=== PATIENT | male | born 1955 | race Caucasian/White ===

== ENCOUNTER 2017-10-06 03:54 | Inpatient (IN) | payer OTHER ==
[~2017-10-06] VITALS: Ht 185.4 cm; Wt 68.8 kg
--- NOTE | ~2017-10-06 | CATHLAB ---
[facility] [address] [place] [address] INVASIVE PROCEDURE REPORT Name: VANE HURD Room #: 248-P ADM IN M.R.#: [id number] Admission: 10/06/17 Attend Phys: Carlos Womack Discharge: Date of : 53 Date of Service: 10/06/17 0810 Report #: [id number] THIS REPORT FOR: //name// APPROVED REPORT Patient Details Patient Status: In-Patient Room #: The patient is a 61 year-old male Event Personnel Moose Hunter Pot Liner, Corinne Perez, Jens Koenig RT(R)(CV) Jacky Johnston Ceola RN RN, Valeriy Shay fitness and wellness coordinator Performed Art Access - R femoral artery* Left Heart Cath w/or w/o Coronaries [id number] [facility] SR[facility] Revasc AMI Total/Sub Single RCA [id number] AMIREVSING Procedure Narrative The patient was brought emergently to the Cardiac Catheterization Laboratory and was prepped and draped in a sterile manner. The Right Groin^ was infiltrated with 1% Lidocaine subcutaneous anesthesia. A PINNACLE 6FR Sheath #[id number] sheath was inserted into the RFA^. Coronary angiography was performed using coronary diagnostic catheters. The right coronary system was accessed and visualized with a JR 4 catheter. The left coronary system was accessed and visualized with a JL 4 catheter. The left ventricle was accessed and visualized with a Pigtail catheter. Left ventricular/Aortic Valve gradient assessed via catheter pullback. Left ventriculogram was performed in GARCIA projection. The patient tolerated the procedure well and there were no complications associated with the procedure. There was no hematoma. Fluoro Time: 11.44 minutes Dose: DAP 00548.10 cGycm2 1503 mGy Contrast Type and Amount: Visipaque 270 ml Coronary Angiography The patient's coronary anatomy is right dominant. Diagnostic Cath Left Main Normal LAD Mild proximal plaquing, 30-40% stenosis Diagonal 1 Large, single diagonal branch with mild proximal [facility] [address] [place] [address] INVASIVE PROCEDURE REPORT Name: VANE HURD Room #: 248-P [facility] IN ..#: [id number] Admission: 10/06/17 Attend Phys: Carlos Womack Discharge: Date of : 53 Date of Service: 10/06/17 0810 Report #: [id number] plaquing Circumflex Moderate in size, non-dominant OM1 small, free of angiographic disease OM2 small to moderte in size, mild proximal plaquing Right Coronary Large, dominant vessel. Proximal stenosis 75%, long tubular mid RCA stenosis of 75-80%, long 99% distal RCA stenosis prior to PDA Left Ventriculography The left ventricle is normal in size with hypokinetic inferior wall contractility. The left ventricular ejection fraction is estimated to be 45%. Left ventricular wall motion abnormalities are present. There is no mitral insufficiency. Hemodynamics The aortic pressure is 86/48 mmHg with a mean of 62 mmHg. The left ventricular pressure is 88/8 mmHg with a mean of mmHg. The left ventricular end diastolic pressure is 24 mmHg. PCI Technique Severe sequential RCA disease involving proximal, mid, and distal segments. Each stenosis pre-dilated with the Euphora balloon. Hypotension requiring dopamine during interventsion. Recurrent episodes of ventricular fibrillation, immediately defibrillated on multiple occasions. IV amiodarone given, bolus then infusion. Between episosed of VF, the RCA with stented, first in the mid section with a 3.0 x 34mm Resolute stent. Then in apposition, more proximally a 3.0 x 15mm Resolute stent. Attention was turned to a long distal RCA stenosis, stented with a 3.0 x 34mm Resolute stent. All three stents were post dilated with a 3.25mm NC Trek balloon inflated to high pressures. Recurrent VF terminated with congregational in MAUREEN III flow to the RCA PCI Technique Lesion Anticoagulation was achieved with Heparin, Integrilin. Patient was preloaded with Brillinta. Percutaneous coronary intervention was performed on the Distal right coronary artery. The lesion stenosis prior to intervention was 99% with MAUREEN 1 flow. A LAUNCHER 6FR JR 4 SH #[id number] Guide Catheter was used to engage the RCA ostium. A Luge Wire .014 x 182CM #[id number] Interventional Guidewire was used to cross the lesion. BALLOON DILATION A Balloon catheter Euphora RX 2.5 x 15 #[id number] was inserted and inflated up to 14.00atm for 28seconds. Repeat angiography revealed [facility] [address] [place] [address] INVASIVE PROCEDURE REPORT Name: VANE HURD Room #: 248-P [facility] IN M.R.#: [id number] Admission: 10/06/17 Attend Phys: Carlos Womack Discharge: Date of : 53 Date of Service: 10/06/17 0810 Report #: [id number] the following post-dilatation results: moderate residual stenosis. Additional Inflation: 8.00atm for 23seconds. Additional Inflation: 8.00atm for 17seconds. STENT DEPLOYMENT A drug-eluting stent RESOLUTE RX 3.0 X 34 #[id number] was inserted and inflated up to 13.00atm for 39seconds. POST STENT DEPLOYMENT BALLOON DILATION A Balloon catheter TREK NC RX 3.25 X 12 #[id number] was inserted and inflated up to 16.00atm for 23seconds. Repeat angiography revealed the following post-dilatation results: 0% residual. Additional Inflation: 16.00atm for 29seconds. Additional Inflation: 16.00atm for 31seconds. Final angiography reveals 0 % stenosis with MAUREEN 3 flow. PCI Technique Lesion 2 Percutaneous Coronary Intervention was performed on the mid right coronary artery. The lesion stenosis prior to intervention was 75% with MAUREEN 1 flow. A LAUNCHER 6FR JR 4 SH #[id number] Guide Catheter was used to engage the ostium. A Luge Wire .014 x 182CM #[id number] Interventional Guidewire was used to cross the lesion. Balloon Dilation A Balloon catheter Euphora RX 2.5 x 15 #[id number] was inserted and inflated up to 10atm for 30seconds. Repeat angiography revealed the following post-dilatation results: moderate residual stenosis. Stent Deployment A drug-eluting stent RESOLUTE RX 3.0 X 34 #[id number] was inserted and inflated up to 13.00atm for 25seconds. Repeat angiography revealed the following post-stent deployment results: 0% residual stenosis. Post Stent Deployment Balloon Dilation A Balloon catheter TREK NC RX 3.25 X 12 #[id number] was inserted and inflated up to 20.00atm for 20seconds. Additional Inflation: 20.00atm for 33seconds. Additional Inflation: 20.00atm for 27seconds. Final angiography reveals 0 % stenosis with MAUREEN 3 flow. PCI Technique Lesion Anticoagulation was achieved with Heparin, Integrilin. Percutaneous coronary intervention was performed on the proximal right coronary artery. [facility] [address] [place] [address] INVASIVE PROCEDURE REPORT Name: VANE HURD Room #: 248-P [facility] IN ..#: [id number] Admission: 10/06/17 Attend Phys: Carlos Womack Discharge: Date of : 53 Date of Service: 10/06/17 0810 Report #: [id number] BALLOON DILATION A Balloon catheter Euphora RX 2.5 x 15 #[id number] was inserted and inflated up to 10atm for 30seconds. Repeat angiography revealed the following post-dilatation results: moderately severe stenosis. STENT DEPLOYMENT A bare metaldrug-eluting stent RESOLUTE RX 3.0 X 15 #[id number] was inserted and inflated up to 14atm for 32seconds. Repeat angiography revealed the following post-stent deployment results: 0% residual stenosis. POST STENT DEPLOYMENT BALLOON DILATION A Balloon catheter TREK NC RX 3.25 X 12 #[id number] was inserted and inflated up to 22atm for 30seconds. Repeat angiography revealed the following post-stent deployment results: 0% residual stenosis. Final angiography reveals 0 % stenosis with MAUREEN 3 flow. PCI Technique Lesion 3 Percutaneous Coronary Intervention was performed on the proximal right coronary artery. The lesion stenosis prior to intervention was 75% with MAUREEN 1 flow. A LAUNCHER 6FR JR 4 SH #[id number] Guide Catheter was used to engage the right ostium. Balloon Dilation A Balloon catheter Euphora RX 2.5 x 15 #[id number] was inserted and inflated up to 10atm for 30seconds. Repeat angiography revealed the following post-dilatation results: moderate residual stenosis. Stent Deployment A drug-eluting stent RESOLUTE RX 3.0 X 15 #[id number] was inserted and inflated up to 10atm for 30seconds. Repeat angiography revealed the following post-stent deployment results: 0% residual. Post Stent Deployment Balloon Dilation A Balloon catheter TREK NC RX 3.25 X 12 #[id number] was inserted and inflated up to 20atm for 30seconds. Final angiography reveals 0 % stenosis with MAUREEN 3 flow. Conclusion 1. Moderate left ventricular dysfunction with inferior wall hypokinesis. EF 45% 2. Normal left main [facility] [address] [place] [address] INVASIVE PROCEDURE REPORT Name: VANE HURD Room #: 248-P [facility]..#: [id number] Admission: 10/06/17 Attend Phys: Carlos Womack Discharge: Date of : 53 Date of Service: 10/06/17 0810 Report #: [id number] 3. Mild-moderate LAD and Circumflex plaquing 4. RCA occlusion with severe sequential stenoses involving the proximal, mid, and distal RCA: Proximal stenosis treated with 3.0 x 15mm Resolute stent, mid RCA with 3.0 x 34mm Resolute stent, and distal RCA with 3.0 x 34mm Resolute stent Recommendations Cardiac Rehabilitation Referral Aggressive Medical Therapy Medications Administered ARB (any) Aspirin (any) Beta Sarahi (any) Statin (any) Ticagrelor Cardiac Rehabilitation Referral <ELECTRONICALLY SIGNED> By: Moose Hunter MD, [facility] 10/06/17809 9 9 Moose Hunter MD, [facility] /INF
--- NOTE | ~2017-10-06 | EKG ---
[address] [place] [address] ELECTROCARDIOGRAM REPORT Name: VANE HURD Room #: 248-P ADM IN M.R.#: [id number] Admission: 10/06/17 Attend Phys: Carlos Bhatt Discharge: Date of : 53 Report #: [id number] THIS REPORT FOR: //name// [facility] Test Date: 2017-10-07 Test Time: 07:10:26 Pat Name: VANE HURD Department: Room: 248 P Gender: M Conference Interpreter: MARIAN : 1955 Requested By: Moose Hunter Order Number: [id number] MD: Moose Hunter Measurements Intervals [place] Rate: 69 P: 37 RI: 201 QRS: 49 QRSD: 107 T: -41 QT: 488 QTc: 523 Interpretive Statements Sinus rhythm Probable anterolateral infarct, age indeterm Prolonged QT interval T-wave abnormality, consider inferior and lateral ischemia Compared to ECG 10/06/2017 07:54:41 Prolonged QT interval now present Anterior lateral Q waves are more prominent Electronically Signed On 10-07-2017 8:15:06 BENCH HAND by Moose Hunter [email or web address] <ELECTRONICALLY SIGNED> By: Moose Hunter MD, [facility] 10/07/17 0815 0710 9 Moose Hunter MD, [facility] /EPI
--- NOTE | ~2017-10-06 | EKG ---
[address] [address] ELECTROCARDIOGRAM REPORT Name: VANE HURD Room #: 248-P ADM IN M.R.#: [id number] Admission: 10/06/17 Attend Phys: Carlos Bhatt Discharge: Date of : 53 Report #: [id number] THIS REPORT FOR: //name// [facility] Test Date: 2017-10-10 Test Time: 06:03:54 Pat Name: VANE HURD Department: Room: 248 P Gender: M Presales Senior Specialist: MARIAN : 1955 Requested By: Cathryn Robles Order Number: [id number] MD: Ronan Bean Measurements Intervals [place] Rate: 70 P: 36 VT: 160 QRS: 32 QRSD: 124 T: -61 QT: 482 QTc: 521 Interpretive Statements Sinus rhythm Nonspecific intraventricular conduction delay Borderline T abnormalities, diffuse leads Compared to ECG 10/09/2017 11:14:40 Intraventricular conduction delay now present Atrial fibrillation no longer present Right ventricular hypertrophy no longer present T-wave abnormality still present Electronically Signed On 10-10-2017 15:02:15 INSURANCE EXAMINING CLERK by Ronan Bean [email or web address] <ELECTRONICALLY SIGNED> By: Ronan Bean MD 10/10/17 1502 0603 0603 Ronan Bean MD /EPI
--- NOTE | ~2017-10-06 | HC ---
[facility] [place] [address] CONSULTATION Name: DARRYNWENDIEVANE Ovi Room #: 248-P [facility] IN M.R.#: [id number] Admission: 10/06/17 Attend Phys: Carlos Bhatt Discharge: Date of : 53 Report #: [id number] THIS REPORT FOR: //name// CC: FAM unknown Carlos Bhatt REASON FOR CONSULTATION: Out-of-the hospital cardiac arrest. HISTORY OF PRESENT ILLNESS: The patient is a 61-year-old gentleman with limited past medical history. He woke up about 2:45 a.m. this morning, telling his that he did not feel well. He went into the bathroom with nausea and vomiting. She came to bring him a cold compress, left the bathroom and heard him collapse. She immediately called 911 and was instructed on bystander CPR. Paramedics arrived and found him to be in ventricular fibrillation, for which he received 5 defibrillator shocks. He was given 5 rounds of epinephrine and total resuscitation time was around 30-35 minutes. He is currently intubated and sedated. No prior cardiac history. No heart failure symptoms. His reports no history of near syncope or syncope. ALLERGIES: No known drug allergies. MEDICATIONS: No medicines on a regular basis. PAST MEDICAL HISTORY: No significant hospitalizations or illnesses. SOCIAL HISTORY: He is a nonsmoker, nondrinker. FAMILY HISTORY: Unremarkable for premature coronary disease. REVIEW OF SYSTEMS: Not obtainable. PHYSICAL EXAMINATION: GENERAL: Reveals a comatose gentleman who is intubated and ventilated. VITAL SIGNS: Blood pressure is 125/100, heart rate of 77 and regular, respirations are assisted. HEENT: There are neither xanthelasma, subcutaneous xanthomata, oral mucosal or digital cyanosis or kyphoscoliosis present. CHEST: Reveals mid-to-end expiratory wheezes. CARDIAC: Regular rate and rhythm with normal S1, S2. Heart sounds are distant. ABDOMEN: Soft and nontender. EXTREMITIES: Without cyanosis, clubbing or edema. Radial pulses are 2+. NEUROLOGIC: Neurologically he is comatose. LABORATORY DATA: Sodium 142, potassium 3.7, creatinine 1.3. White count 9.6; hemoglobin 11.8; hematocrit 34; platelet count 31,000. EKG, sinus rhythm with baseline artifact, there appear to be inferior repolarization abnormality consistent with injury, right bundle-branch block. [facility] [address] [place] [address] CONSULTATION Name: VANE HURD Room #: 248-P [facility] IN M.R.#: [id number] Admission: 10/06/17 Attend Phys: Carlos Bhatt Discharge: Date of : 53 Report #: [id number] IMPRESSION: 1. Dkd-pe-yeaxzmtk cardiac arrest with prolonged resuscitation. 2. Inferior infarct precipitating #1 above. 3. Ventricular fibrillation with defibrillation x 5. 4. Respiratory failure; probable aspiration 5. Hypoxic encephalopathy RECOMMENDATIONS: 1. Urgent coronary angiography. 2. Hypothermia protocol. 3. Neurologic and Pulmonary consultations. I have discussed all of these issues with the patient's family. I have outlined the angiographic procedure including its associated risks. After a thorough discussion of the procedure, its risks and alternatives, his is agreeable to proceeding. <ELECTRONICALLY SIGNED> By: Moose Hunter MD, FACC 10/09/17 0813 0527 1155 Moose Hunter MD, FACC /nt
--- NOTE | ~2017-10-06 | HC ---
[facility] [place] [address] [place] [address] CONSULTATION Name: VANE HURD Room #: 248-P [facility] IN M.R.#: [id number] Admission: 10/06/17 Attend Phys: Carlos Bhatt Discharge: Date of : 53 Report #: [id number] THIS REPORT FOR: //name// CC: FAM unknown Carlos Bhatt REASON FOR CONSULTATION: I was asked to evaluate concerning fever post out of hospital cardiac arrest. HISTORY OF PRESENT ILLNESS: The patient is a 61-year-old previously healthy individual who developed anterior chest pain on 10/06/2017. He passed out in the bathroom. His was in attendance and started CPR. He was found to be in VFib. He was transported to the emergency room and he was taken straight to the labor relations director where he was found to have a posterior infarct with right coronary artery occlusion that was stented. He was placed on ice protocol. Following rewarming, he has had fever between 100 and 101.4 degrees. He remains intubated. He is beginning to awaken. He did aspirate. Moderate amount of tracheal secretions, but culture so far has been negative blood, urine and sputum. He was placed on Zosyn. Despite this, he continues to have low-grade fever. REVIEW OF SYSTEMS: No rash or decubiti noted. No ongoing nausea, vomiting, or diarrhea. He is orally intubated. NG tube in place. ALLERGIES: None. PAST MEDICAL HISTORY: Unremarkable other than colon polyposis. FAMILY HISTORY: Noncontributory. SOCIAL HISTORY: Nonsmoker, no significant alcohol intake. He remains very active, exercises regularly. MEDICATIONS: As noted on his MAR, now including vancomycin and Zosyn. PHYSICAL EXAMINATION: VITAL SIGNS: Temperature 100.1, hemodynamically stable. GENERAL: He does arouse and follow simple commands. Orally intubated. HEENT: Unremarkable. NECK: Supple. LUNGS: Clear anteriorly with few crackles heard in the left posterior base. HEART: Regular. ABDOMEN: Soft, nontender, no hepatosplenomegaly or mass. Groin site was unremarkable. EXTREMITIES: Unremarkable. LABORATORY STUDIES: Chest x-ray, bilateral infiltrates and atelectasis. X-ray [facility] [address] [place] [address] CONSULTATION Name: VANE HURD Room #: 248-P [facility] IN ..#: [id number] Admission: 10/06/17 Attend Phys: Carlos Bhatt Discharge: Date of : 53 Report #: [id number] today appears improved from yesterday. Hemoglobin 9.5, platelet count 73,000, white count 4.9 with 76% segs, and 15% lymphs. AST 107, ALT 148, and bilirubin 1.7. Sodium 144, potassium 3.9, bicarbonate 24, and creatinine 0.9. Urinalysis unremarkable. Repeat blood and sputum cultures are pending. IMPRESSION: A 61-year-old with out of hospital cardiac arrest, now day #4 with ongoing low grade fever. I am suspecting pulmonary source most likely. He does have mild hepatitis, which I suspect is related to ischemia. He does have thrombocytopenia, again which appears most likely disseminated intravascular coagulation relating to his previous stress or drug related. Overall, he seems to be improving. We would recommend continuing current antibiotic program with vancomycin and will switch the Zosyn to cephalosporins fever. <ELECTRONICALLY SIGNED> By: Jayden Alvarado MD 10/11/17 1129 1019 1802 Jayden Alvarado MD /nt
--- NOTE | ~2017-10-06 | 2DMMODE ---
[facility] [address] [place] [address] 2 D/M-MODE ECHOCARDIOGRAM Name: VANE HURD Room #: 248-P ADM IN M.R.#: [id number] Admission: 10/06/17 Attend Phys: Carlos Womack Discharge: Date of : 53 Date of Service: 10/07/17 1305 Report #: [id number] THIS REPORT FOR: //name// APPROVED REPORT Study performed: 10/07/2017 09:03:44 EXAM: Comprehensive 2D, Doppler, and color-flow Echocardiogram Patient Location: ICU Room #: 248 Status: routine BSA: 1.97 BP: 160/81 mmHg Other Information Study Quality: Adequate Indications Elevated Troponin SD 2D Dimensions RVDd: 32.68 mm LVEF(%): 58.31 (>50%) IVSd: 14.74 (7-11mm) LVOT Diam: 18.56 (18-24mm) LVDd: 41.37 mm PWd: 13.45 (7-11mm) Ascending Ao: 31.45 (22-36mm) LVDs: 28.78 (25-40mm) Aortic Root: 36.01 mm IVC: 14.00 mm Hernandez's LVEF: 58.31 % Volumes Left Atrial Volume (Systole) Single Plane 4CH: 23.92 mL Single Plane 2CH: 66.26 mL LA ESV Index: 22.00 mL/m2 Aortic Valve AoV Peak Russell.: 1.45 m/s AO Peak Gr.: 8.42 mmHg LVOT Max P.05 mmHg LVOT Max V: 1.12 m/s KHADIJAH Vmax: 2.09 cm2 Mitral Valve E/A Ratio: 1.2 MV Decel. Time: 254.07 ms [facility] [address] [place] [address] 2 D/M-MODE ECHOCARDIOGRAM Name: VANE HURD Room #: 248-P [facility].#: [id number] Admission: 10/06/17 Attend Phys: Carlos Womack Discharge: Date of : 53 Date of Service: 10/07/17 1305 Report #: [id number] MV E Max Russell.: 0.67 m/s MV A Russell.: 0.57 m/s MV PHT: 73.68 ms IVRT: 145.33 ms Pulmonary Valve PV Peak Russell.: 1.12 m/s PV Peak Gr.: 4.98 mmHg Pulmonary Vein P Vein S: 0.42 m/s P Vein A: 0.22 m/s P Vein D: 0.32 m/s P Vein A Dur.: 86.5 msec P Vein S/D Ratio: 1.31 Tricuspid Valve RAP Estimate: 5.00 mmHg Left Ventricle The left ventricle is normal size. Regional wall motion is not well visualized but grossly normal. Mild concentric left ventricular hypertrophy. The left ventricular systolic function is normal. The left ventricular ejection fraction is within the normal range. LVEF is 55%. The left ventricular diastolic function is normal. Right Ventricle The right ventricle is normal size. The right ventricular systolic function is normal. Atria The left atrium size is normal. Right atrium is at the upper limits of normal. Aortic Valve The aortic valve is mildly sclerotic Trace to mild aortic regurgitation. There is no aortic valvular stenosis. Mitral Valve The mitral valve is normal in structure. Trace mitral regurgitation. No evidence of mitral valve stenosis. Tricuspid Valve The tricuspid valve is normal in structure. There is no tricuspid valve regurgitation noted. Unable to assess PA pressure. Pulmonic Valve Pulmonic valve is not well visualized. There is no pulmonic valvular regurgitation noted. [address] [address] 2 D/M-MODE ECHOCARDIOGRAM Name: VANE HURD Room #: 248-P [facility] IN [facility]#: [id number] Admission: 10/06/17 Attend Phys: Carlos Womack Discharge: Date of : 53 Date of Service: 10/07/17 1305 Report #: [id number] Great Vessels The aortic root is normal in size. IVC is normal in size and collapses >50% with inspiration. Pericardium There is no pericardial effusion. <Conclusion> The left ventricular systolic function is normal. Regional wall motion is not well visualized but grossly normal. LVEF is 55%. The aortic valve is mildly sclerotic. Trace to mild aortic regurgitation, no stenosis. The mitral valve is normal in structure. Trace mitral regurgitation. Pulmonary artery pressure could not be reliably ascertained There is no pericardial effusion. <ELECTRONICALLY SIGNED> By: Moose Hunter MD, FACC 10/07/17 1305 1305 1305 Moose Hunter MD, FACC /INF
--- NOTE | ~2017-10-06 | EEG ---
[facility] [place] [address] [place] [address] ELECTROENCEPHALOGRAM Name: VANE HURD Room #: 248-P ADM IN M.R.#: [id number] Admission: 10/06/17 Attend Phys: Carlos Blevins Discharge: Date of : 53 Report #: [id number] THIS REPORT FOR: //name// CC: FAM unknown Carlos Bhatt DATE OF SERVICE: 10/09/2017 This patient is being evaluated for the possibility of post-cardiac arrest. The patient is unresponsive, EEG was done with sedation. Background activity in this patient's EEG is about 6-7 Hz and it appeared to be showing a frontally predominant triphasic waves. Photic stimulation is unremarkable. Throughout the record, no active epileptiform activity was noticed. IMPRESSION: This patient's EEG is consistent with encephalopathy. Some triphasic waves may be present. Some question of some sharper activity is present, but is not definite and therefore, I will suggest serial EEG especially because there is no evidence of seizures clinically. Thank you very much for this referral. <ELECTRONICALLY SIGNED> By: Hilton Snyder MD 10/10/17 1901 1315 1353 Hilton Snyder MD /nt
--- NOTE | ~2017-10-06 | EKG ---
[address] [address] [place] [address] ELECTROCARDIOGRAM REPORT Name: VANE HURD Room #: 248-P ADM IN M.R.#: [id number] Admission: 10/06/17 Attend Phys: Carlos Bhatt Discharge: Date of : 53 Report #: [id number] THIS REPORT FOR: //name// [facility] Test Date: 2017-10-06 Test Time: 07:54:41 Pat Name: VANE HURD Department: Room: 248 Gender: M Yarn Rewinder: FLORES : 1955 Requested By: Moose Hunter Order Number: [id number] MD: Ronan Bean Measurements Intervals [place] Rate: 70 P: 44 VT: 183 QRS: 70 QRSD: 115 T: -58 QT: 440 QTc: 475 Interpretive Statements Sinus rhythm Right atrial enlargement Incomplete right bundle branch block ST depr, consider ischemia, inferior leads ST elevation, consider lateral injury Artifact in lead(s) I,II,III,aVR,aVL,aVF,V1 No previous ECG available for comparison Electronically Signed On 10-06-2017 9:07:59 CLAY HOISTER by Ronan Bean [email or web address] <ELECTRONICALLY SIGNED> By: Ronan Bean MD 10/06/17 0907 0754 0754 Ronan Bean MD /EPI
--- NOTE | ~2017-10-06 | HC ---
[facility] [place] [address] CONSULTATION Name: VANE HURD Room #: 215-P [facility] IN M.R.#: [id number] Admission: 10/06/17 Attend Phys: Carlos Bhatt Discharge: 10/16/17 Date of : 53 Report #: [id number] THIS REPORT FOR: //name// CC: FAM unknown Carlos Bhatt HISTORY OF PRESENT ILLNESS: The patient seen at the request of the hospitalist regarding thrombocytopenia and currently is in the ICU at [facility]. He was admitted emergently following cardiac arrest and is currently intubated. All information is taken from his records as he is not responsive. He evidently had a myocardial infarction leading to subsequent ventricular fibrillation and was successfully resuscitated out of the hospital, but after a long period of time. It is felt that he is at high risk for anoxic or hypoxic brain injury. His platelet count today is 55,000 and he has not showing any apparent bleeding from any of his previous venipuncture sites or IVs. Earlier coagulation studies were also normal. ALLERGIES: None known. MEDICATIONS: None on a routine basis. PAST MEDICAL HISTORY: Negative. SOCIAL HISTORY: Nondrinker, nonsmoker. FAMILY HISTORY: Positive for coronary artery disease. REVIEW OF SYSTEMS: Not obtainable. PHYSICAL EXAMINATION: GENERAL: Shows unresponsive white male. Currently, he is normotensive. Heart rate of 80. HEENT: Normocephalic. NECK: Supple. He has an endotracheal tube. CHEST: Clear. CARDIOVASCULAR: Normal S1, S2. ABDOMEN: No evidence of palpable spleen. EXTREMITIES: No clubbing, cyanosis or edema. NEUROLOGIC: He is not responsive. LYMPHATICS: Revealed no palpable supraclavicular adenopathy. SKIN: Normal turgor. ASSESSMENT: Thrombocytopenia. PLAN: His platelets have risen from 31,000 on the , now to 55,000 and I suspect this is related to his earlier arrest with subsequent hypotension and [facility] [address] [place] [address] CONSULTATION Name: VANE HURD Room #: 215-P [facility]#: [id number] Admission: 10/06/17 Attend Phys: Carlos Bhatt Discharge: 10/16/17 Date of : 53 Report #: [id number] lactic acidosis and appears to be improving. He has not had evidence of heparin antibody. Earlier studies were not indicative of DIC that will be repeated along with an immature platelet fraction. It is possible that some of the medicines used in his treatment since being hospitalized could also be contributing and would like to limit as much as possible. He fortunately appears to have stable hemoglobin and no evidence of bleeding related to this mild level of thrombocytopenia. Thanks again for asking us to involve in the care and allowing me to see him in consultation. <ELECTRONICALLY SIGNED> By: Taniya Saenz MD 10/29/17 0916 1539 0008 Taniya Saenz MD /shiva
--- NOTE | ~2017-10-06 | EKG ---
[address] [place] [address] ELECTROCARDIOGRAM REPORT Name: VANE HURD Room #: 248-P ADM IN M.R.#: [id number] Admission: 10/06/17 Attend Phys: Carlos Bhatt Discharge: Date of : 53 Report #: [id number] THIS REPORT FOR: //name// [facility] Test Date: 2017-10-09 Test Time: 11:14:40 Pat Name: VANE DARRYNWENDIE Department: Room: 248 Gender: M Manager Medical: Ovi MENJIVAR : 1955 Requested By: Moose Hunter Order Number: [id number] MD: Ronan Bean Measurements Intervals [place] Rate: 100 P: GA: QRS: 59 QRSD: 99 T: -71 QT: 351 QTc: 453 Interpretive Statements Atrial fibrillation RSR' in V1 or V2, right VCD or RVH Nonspecific T abnormalities, inferior leads Electronically Signed On 10-09-2017 11:42:30 SOLE CONFORMING MACHINE OPERATOR by Ronan Bean [email or web address] <ELECTRONICALLY SIGNED> By: Ronan Bean MD 10/09/17 1142 13 13 Ronan Bean MD /ANDRES
--- NOTE | ~2017-10-06 | EKG ---
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: TORY : 1955 Requested By: Aubree Abreu Order Number: [id number] MD: Ronan Bean Measurements Intervals [place] Rate: 77 P: -2 MN: 158 QRS: 48 QRSD: 119 T: -37 QT: 467 QTc: 529 Interpretive Statements Sinus rhythm Incomplete right bundle branch block Inferior infarct, acute Baseline wander in lead(s) II,III,aVL,aVF No previous ECG available for comparison Electronically Signed On 10-06-2017 9:07:41 INSTRUCTION LIBRARIAN by Ronan Bean [email or web address] <ELECTRONICALLY SIGNED> By: Ronan Bean MD 10/06/17 0907 0358 0358 Ronan Bean MD /EPI
--- NOTE | ~2017-10-06 | EEG ---
[facility] [place] [address] ELECTROENCEPHALOGRAM Name: VANE HURD Room #: 248-P ADM IN M.R.#: [id number] Admission: 10/06/17 Attend Phys: Carlos Blevins Discharge: Date of : 53 Report #: [id number] THIS REPORT FOR: //name// CC: FAM unknown Carlos Bhatt DATE OF SERVICE: 10/08/2017 This patient's EEG was done by placing the electrodes by standard 10/20 system of electrode placement. Both referential and sequential montages were used for recording. Background activity in this patient's EEG is about 5-6 Hz and 30 microvolts. Well defined cortical activity is present, but it is abnormal throughout the record. Photic stimulation is unremarkable. IMPRESSION: This is an abnormal EEG demonstrated findings consistent with encephalopathy. Serial EEGs will be required to prognosticate the patient over a period of time. Well defined cortical activity is present, but it is abnormal throughout the record. Thank you very much for this referral. <ELECTRONICALLY SIGNED> By: Hilton Snyder MD 10/10/17 1901 1006 1030 Hilton Snyder MD /nt
--- NOTE | ~2017-10-06 | HC ---
[facility] [place] [address] CONSULTATION Name: VANE HURD Room #: 215-P [facility] IN ..#: [id number] Admission: 10/06/17 Attend Phys: Carlos Bhatt Discharge: 10/16/17 Date of : 53 Report #: [id number] THIS REPORT FOR: //name// CC: FAM unknown Carlos Bhatt DATE OF SERVICE: 10/14/2017 HISTORY OF PRESENT ILLNESS: This is a 61-year-old white male who had an out of hospital cardiac arrest, was found down at home. He underwent CPR, was noted to have VFib several times. He was admitted to [facility], noted to have an acute inferior wall GA. He was taken to the labor law professor and had multiple stents placed in right coronary artery. He was placed in the hypothermia protocol in the ICU. He was noted to have hypoxic encephalopathy, acute respiratory failure, aspiration pneumonia, thrombocytopenia, elevated liver function tests, thought secondary to shock liver. He has been moved out of the Intensive Care Unit. He does have dysphagia, mechanical soft nectar thickened liquids. We are seeing him in rehabilitation medicine consultation. PAST MEDICAL HISTORY: Otherwise, healthy. FAMILY HISTORY: No pertinent family history. HABITS: No noted history of tobacco or alcohol abuse, known history of any recreational drug abuse. ALLERGIES: No known drug allergies. SOCIAL HISTORY: Lives with his , house. Did not utilize any gait aids. Works in [employer]. 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 She works from home, so she is at home, but will go to the school a couple of half days or days per week. REVIEW OF SYSTEMS: No current complaints of chest pain, shortness of breath or abdominal discomfort. Did not offer any focal extremity pain complaints. PHYSICAL EXAMINATION: GENERAL: A 61-year-old male, appeared in no distress. He appears rather impulsive, has some decreased insight into his deficits. VITAL SIGNS: His temperature is 99.7, pulse 71, respirations 20, blood pressure 172/86. He was alert. Serial 7's were reasonably good. NEUROLOGIC: He was able to perform short-term memory at 1 minute. He is on nasal prong O2. Functional range of motion of both upper and lower extremities, strength is grade 4-/5 to 4/5. DTRs are trace to 1. Tone appeared to be intact. He was mod assist, however, with sit to stand and gait 600 feet mod assist as he is impulsive, he has decreased balance. [facility] [address] [place] [address] CONSULTATION Name: VANE HURD Room #: 215-P [facility]#: [id number] Admission: 10/06/17 Attend Phys: Carlos Bhatt Discharge: 10/16/17 Date of : 53 Report #: [id number] ASSESSMENT: A 61-year-old white male with the following problem list: 1. Hypoxic encephalopathy. 2. Acute inferior wall myocardial infarction. 3. Status post multiple cardiac stents, right coronary artery. 4. Acute respiratory failure. 5. Aspiration pneumonia. 6. Dysphagia, currently on mechanical soft nectar thickened liquids. 7. Elevated LFTs, thought secondary to shock liver. 8. Thrombocytopenia. 9. Paroxysmal atrial fibrillation. PLAN: I would recommend a short acute in-hospital inpatient rehabilitation stay to maximize the patient's functional independence. He does have decreased insight, safety, judgment balance and has dysphagia. He has multiple medical comorbidities and is being followed by multiple consulting physicians. We would recommend a stay in the hospital within the inpatient rehabilitation, so that these multiple consulting physicians could continue to follow and to try to work on maximizing his independence, so he can safely return back to the home setting. I did have a discussion with the patient's in this regard. Insurance will be checked regarding an acute in-hospital inpatient rehabilitation stay. <ELECTRONICALLY SIGNED> By: Jc Stewart MD 10/18/17 1306 1226 2125 Jc Stewart MD /[facility]
--- NOTE | ~2017-10-06 | HC ---
[facility] [place] [address] CONSULTATION Name: VANE HURD Room #: 248-P [facility] IN M.R.#: [id number] Admission: 10/06/17 Attend Phys: Carlos Bhatt Discharge: Date of : 53 Report #: [id number] THIS REPORT FOR: //name// CC: FAM unknown Carlos Bhatt DATE OF SERVICE: 10/06/2017 REFERRAL PHYSICIAN: Dr. Bhatt. REASON FOR REFERRAL: Respiratory failure due to cardiac arrest. HISTORY OF PRESENT ILLNESS: The patient is a 61-year-old white male who was brought to the Emergency Room following a cardiac arrest. He was found to have ST elevation myocardial infarction. He is now intubated, currently on hypothermia protocol. A pulmonary consultation was requested. According to the , patient has been fairly healthy most of his life. They just recently came back from a out of state. The patient was in his usual state of health until yesterday evening when he told his that he was not feeling well. The patient then collapsed. EMS arrived. CPR was given. He was found to be in ventricular fibrillation. He was given 5 defibrillator shocks allowing five rounds of epinephrine, 300 mg of amiodarone was given with return of sinus rhythm. The patient's down time was said to be 35 minutes. The patient did have respiratory efforts. He was transferred to the Emergency Room where he was intubated. He was then taken to the labor relations officer. Procedure note was not available, but the patient did undergo multiple stent placements according to the . Currently, he is unresponsive on hypothermia protocol. also notes that the patient did have vomitus around his oral cavity when he passed out. PAST MEDICAL HISTORY: Otherwise, unremarkable. PAST SURGICAL HISTORY: Unremarkable. ALLERGIES: None noted. HOME MEDICATIONS: None noted. FAMILY HISTORY: Negative for cardiac disease. SOCIAL HISTORY: He is remarried. There is no history of tobacco or alcohol use. [facility] [address] [place] [address] CONSULTATION Name: DARRYNVANE PRESSLEY Room #: 248-P [facility] IN [facility].#: [id number] Admission: 10/06/17 Attend Phys: Carlos Bhatt Discharge: Date of : 53 Report #: [id number] REVIEW OF SYSTEMS: Unobtainable as the patient is not responsive. PHYSICAL EXAMINATION: VITAL SIGNS: Temperature on admission was 36.6 degrees Celsius, currently he is 30.5 degrees Celsius, pulse is 50, respiratory rate is 18, blood pressure 122/58 mmHg, saturation is 97%. HEENT: Normocephalic, atraumatic. He is orally intubated. NECK: Supple, without any lymphadenopathy or thyromegaly. CHEST: Breath sounds are clear anteriorly. CARDIOVASCULAR: Regular rhythm, no overt murmurs or gallop. Pulses 2+ and 4+ bilaterally. ABDOMEN: Soft, no masses felt. GENITOURINARY: Deferred. RECTAL: Deferred. EXTREMITIES: There is no edema, cyanosis or clubbing. NEUROLOGIC: The patient is unresponsive to deep sternal rub. LABORATORY DATA: Portable chest x-ray showed bilateral perihilar infiltrates. ET tube is approximately 2.5 cm above the toney. Sodium 138, potassium 4.6, chloride 108, CO2 is 18, BUN is 25, creatinine is 1.5. WBC 15,000, hemoglobin is 14.7, platelets are normal. No bandemia. Arterial blood gas revealed pH 7.22, pCO2 of 45, pO2 of 77 on FiO2 100%. Troponin at peak level was 3.8. EKG shows acute inferior infarct, incomplete right bundle-branch block. IMPRESSION: 1. Yrr-tp-ghueetgi ventricular fibrillation arrest. 2. ST elevation myocardial infarction, anterior lead, status post cardiac catheterization with stent placement. 3. Encephalopathy, suspect profound anoxic brain injury. 4. Acute hypoxic respiratory failure. 5. Acute kidney injury with metabolic acidosis. 6. Hypotension. Suspect ischemic cardiomyopathy. RECOMMENDATION: We will continue mechanical ventilation. Agree with hypothermia protocol. Vasopressors to keep systolic greater than 90 mmHg or mean arterial pressure greater than 60-65 mmHg. Deep vein thrombosis and gastrointestinal prophylaxis will be initiated. We will need to follow urine output closely, given acute kidney injury along with hypotension. Monitor metabolic acidosis. Down time is felt to be around 35 minutes. The patient is not responsive to deep sternal rub. Concerns for profound hypoxic brain injury. Neurology has been consulted. [address] [address] CONSULTATION Name: VANE HURD Room #: 248-P [facility] IN M.R.#: [id number] Admission: 10/06/17 Attend Phys: Carlos Bhatt Discharge: Date of : 53 Report #: [id number] Thank you for this consultation. <ELECTRONICALLY SIGNED> By: Delmer Mcmillan MD 10/07/17 1530 1347 2219 Delmer Mcmillan MD /nt
--- NOTE | ~2017-10-06 | HC ---
[facility] [place] [address] CONSULTATION Name: DARRYNWENDIEVANE Ovi Room #: 248-P [facility] IN M.R.#: [id number] Admission: 10/06/17 Attend Phys: Carlos Bhatt Discharge: Date of : 53 Report #: [id number] THIS REPORT FOR: //name// CC: FAM unknown Carlos Bhatt DATE OF SERVICE: 10/06/2017 REASON FOR CONSULTATION: Elevated creatinine. HISTORY OF PRESENT ILLNESS: This 61-year-old gentleman had an out of hospital witnessed cardiac arrest, underwent resuscitation, had 5 shocks, was resuscitated in the field, down time approximately 35 minutes according to the records. The patient was taken to the hospital and taken emergently to the medical lab specialist. He had 3 sequential coronary stents placed in his right coronary artery. Ejection fraction was low at 40% and he is returned to the ICU after the procedure. He is requiring pressors including Levophed and dopamine, has become bradycardic post-procedure. Urine output is good and creatinine is 1.5. Of note, glucoses are elevated. PAST MEDICAL HISTORY: According to his , he really has been rather healthy. Only past history is that of remote kidney stones. PAST SURGICAL HISTORY: No surgeries. MEDICATIONS: He takes no regular medications. FAMILY HISTORY: No renal disease. SOCIAL HISTORY: No cigarettes, no substantial amount of alcohol. He exercises and he is fit. REVIEW OF SYSTEMS: Apparently was feeling quite well until this sudden collapse with absolutely no symptoms whatsoever. There had been no shortness of breath. No chest pains. No prior history of glucose intolerance or heat or cold intolerance. No history of gastrointestinal problems or poor appetite. No prior history of seizure or stroke. PHYSICAL EXAMINATION: GENERAL: This is a completely comatose patient seen in the ICU, on hypothermia protocol and cooling apparatus, completely unresponsive. SKIN: Unremarkable. SKELETAL: Well developed, well nourished. HEENT: Extraocular movements cannot be tested. Pupils are dilated. [facility] [address] [place] [address] CONSULTATION Name: VANE HURD Room #: 248-P [facility] IN ..#: [id number] Admission: 10/06/17 Attend Phys: Carlos Bhatt Discharge: Date of : 53 Report #: [id number] Endotracheal tube is in place. NECK: Supple. CHEST: Shows coarse crackly breath sounds. HEART: Regular, but bradycardic. ABDOMEN: Soft. Bowel sounds heard. EXTREMITIES: Showed no peripheral edema. Pulses diminished. NEUROLOGIC: Again, he is totally comatose, on hypothermia protocol. LABORATORY DATA: Hemoglobin is 14.7, white count 15, platelets 181. Sodium 138, potassium 4.6, chloride 108, bicarbonate 18, creatinine 1.5 up from 1.3, calcium low at 6.8, magnesium low at 1.7. ASSESSMENT AND PLAN: 1. Elevated creatinine. Creatinine minimally elevated. He did receive a dye load, obviously has a large amount of hemodynamic stress. Certainly, he is at some risk for acute kidney injury. We will follow along carefully. Currently, his LVEDP was rather high at 24, so volume depletion does not seem to be at all an issue in this case. We will certainly follow him along, try to get him off the pressors as we can. No specific treatment at this time is indicated. 2. Status post out of hospital arrest, certainly at risk for substantial neurologic injury. 3. Status post acute myocardial infarction with 3 sequential right coronary stents placed emergently. 4. Elevated glucose levels. <ELECTRONICALLY SIGNED> By: Wili Solis MD 10/11/17 1128 1557 0240 Wili Solis MD /nt
[2017-10-06 03:55] VITALS: BP 123/80
[2017-10-06 04:19] LABS: BE(vivo) -9.3 mmol/L (-2 to +3); HCO3 18.2 mmol/L (22.0-26.0); PCO2 45.1 mmHg (35.0-45.0); PO2 77.8 mmHg (80.0-100.0)
[2017-10-06 04:22] LABS: pH 7.223 (7.360-7.450)
[2017-10-06 04:30] LABS: HEMATOCRIT 34.9 % (42.0-52.0); HEMOGLOBIN 11.8 gm/dL (14.0-18.0); MCH 32.6 pg (26.0-34.0); MCHC 33.8 g/dL (28.0-37.0); MCV 96.5 fL (80.0-100.0); RBC 3.62 mil/uL (4.50-6.00); RDW 12.7 % (10.5-14.5); WBC 9.6 thou/uL (4.0-11.0)
[2017-10-06 04:32] LABS: POC CA IONIZED 4.3 mg/dL (4.5-5.3); POC CREATININE 1.3 mg/dL (0.6-1.3); POC HEMOGLOBIN 13.6 g/dL (14.0-18.0); POC POTASSIUM 3.7 mmol/L (3.5-5.1)
[2017-10-06 04:51] LABS: ABSOLUTE NEUTROPHILS 4.5 thou/uL (1.4-8.2)
[2017-10-06 04:52] LABS: PLATELET COUNT 31 thou/uL (150-400); PLATELET ESTIMATE DECREASED; POLYCHROMASIA OCCASIONAL
[2017-10-06 05:31] LABS: CREATININE 1.2 mg/dL (0.7-1.3)
[2017-10-06 05:45] LABS: APTT 24.6 Seconds (24.5-32.8); INR 1.2; PROTIME 12.6 Seconds (9.3-11.4); TROPONIN-I 0.63 ng/mL (<0.06)
[2017-10-06 05:50] VITALS: BP 138/89
[2017-10-06 06:13] LABS: CHOLESTEROL 128 mg/dL (<200); HDL CHOLESTEROL 54 mg/dL (>40); LDL CHOLESTEROL 21 mg/dL (<100); TC:HDL 2.4 Ratio (Not establshd); TRIGLYCERIDE 269 mg/dL (<150); VLDL 54 mg/dL (<40)
[2017-10-06 06:14] LABS: SERUM ASSESSMENT Clear
[2017-10-06 07:25] LABS: BE(vivo) -9.6 mmol/L (-2 to +3); HCO3 15.2 mmol/L (22.0-26.0); PCO2 30.7 mmHg (35.0-45.0); PO2 374.6 mmHg (80.0-100.0); pH 7.312 (7.360-7.450); sO2 99.8 % (92.0-98.0)
[2017-10-06 07:30] VITALS: BP 58/38
[2017-10-06 08:01] LABS: BASOPHILS 0.2 % (0.0-2.0); EOSINOPHILS 0.2 % (0.0-3.0); HEMATOCRIT 44.1 % (42.0-52.0); LYMPHOCYTES 4.8 % (24.0-44.0); MCH 31.4 pg (26.0-34.0); MCHC 33.8 g/dL (28.0-37.0); MCV 93.1 fL (80.0-100.0); MONOCYTES 6.8 % (1.0-8.0); RBC 4.74 mil/uL (4.50-6.00); RDW 12.9 % (10.5-14.5); WBC 13.7 thou/uL (4.0-11.0)
[2017-10-06 08:09] LABS: HEMOGLOBIN 14.9 gm/dL (14.0-18.0); PLATELET COUNT 216 thou/uL (150-400)
[2017-10-06 10:02] VITALS: BP 117/89
[2017-10-06 12:36] LABS: ABSOLUTE NEUTROPHILS 13.4 thou/uL (1.4-8.2); BASOPHILS 0.2 % (0.0-2.0); EOSINOPHILS 0.1 % (0.0-3.0); HEMATOCRIT 42.8 % (42.0-52.0); HEMOGLOBIN 14.7 gm/dL (14.0-18.0); LYMPHOCYTES 7.1 % (24.0-44.0); MCH 32.7 pg (26.0-34.0); MCHC 34.3 g/dL (28.0-37.0); MCV 95.4 fL (80.0-100.0); MONOCYTES 2.9 % (1.0-8.0); PLATELET COUNT 181 thou/uL (150-400); POLYS 89.7 % (36.0-66.0); RBC 4.49 mil/uL (4.50-6.00); RDW 13.1 % (10.5-14.5)
[2017-10-06 12:54] LABS: CALCIUM 6.8 mg/dL (8.5-10.1); CREATININE 1.5 mg/dL (0.7-1.3); MAGNESIUM 1.7 mg/dL (1.8-2.4); POTASSIUM 4.6 mmol/L (3.5-5.1)
[2017-10-06 12:56] LABS: TROPONIN-I 3.87 ng/mL (<0.06)
[2017-10-06 18:11] VITALS: BP 148/126
[2017-10-06 18:22] LABS: HEMATOCRIT 44.7 % (42.0-52.0); HEMOGLOBIN 15.3 gm/dL (14.0-18.0); MCH 31.4 pg (26.0-34.0); MCHC 34.1 g/dL (28.0-37.0); MCV 91.9 fL (80.0-100.0); PLATELET COUNT 171 thou/uL (150-400); RBC 4.87 mil/uL (4.50-6.00); RDW 12.8 % (10.5-14.5); WBC 14.5 thou/uL (4.0-11.0)
[2017-10-06 18:55] LABS: ABSOLUTE NEUTROPHILS 12.8 thou/uL (1.4-8.2)
[2017-10-06 19:24] LABS: CALCIUM 7.6 mg/dL (8.5-10.1); CREATININE 1.3 mg/dL (0.7-1.3); POTASSIUM 4.3 mmol/L (3.5-5.1)
[2017-10-06 19:25] LABS: MAGNESIUM 2.4 mg/dL (1.8-2.4)
[2017-10-07 01:35] LABS: ALBUMIN 2.8 g/dL (3.4-5.0); CALCIUM 7.4 mg/dL (8.5-10.1); PHOSPHORUS 3.2 mg/dL (2.5-4.9); POTASSIUM 4.3 mmol/L (3.5-5.1)
[2017-10-07 01:43] LABS: TROPONIN-I 2.4 ng/mL (<0.06)
[2017-10-07 02:03] LABS: ABSOLUTE NEUTROPHILS 8.4 thou/uL (1.4-8.2); BASOPHILS 0.1 % (0.0-2.0); EOSINOPHILS 0.1 % (0.0-3.0); HEMATOCRIT 43.5 % (42.0-52.0); LYMPHOCYTES 5.3 % (24.0-44.0); MCH 31.8 pg (26.0-34.0); MCHC 34.4 g/dL (28.0-37.0); MCV 92.4 fL (80.0-100.0); PLATELET COUNT 131 thou/uL (150-400); POLYS 86.5 % (36.0-66.0); RBC 4.71 mil/uL (4.50-6.00); RDW 13.2 % (10.5-14.5); WBC 9.7 thou/uL (4.0-11.0)
[2017-10-07 05:17] LABS: BE(vivo) -8.8 mmol/L (-2 to +3); PCO2 36.7 mmHg (35.0-45.0); PO2 106.5 mmHg (80.0-100.0); sO2 97.3 % (92.0-98.0)
[2017-10-07 05:19] LABS: pH 7.284 (7.360-7.450)
[2017-10-07 05:32] LABS: ABSOLUTE NEUTROPHILS 8.4 thou/uL (1.4-8.2); BASOPHILS 0.3 % (0.0-2.0); EOSINOPHILS 0.1 % (0.0-3.0); HEMATOCRIT 42.3 % (42.0-52.0); HEMOGLOBIN 14.6 gm/dL (14.0-18.0); LYMPHOCYTES 6.2 % (24.0-44.0); MCH 31.7 pg (26.0-34.0); MCHC 34.6 g/dL (28.0-37.0); MCV 91.8 fL (80.0-100.0); MONOCYTES 7.2 % (1.0-8.0); PLATELET COUNT 118 thou/uL (150-400); POLYS 86.2 % (36.0-66.0); RBC 4.61 mil/uL (4.50-6.00); RDW 12.9 % (10.5-14.5); WBC 9.8 thou/uL (4.0-11.0)
[2017-10-07 05:47] LABS: CALCIUM 7.6 mg/dL (8.5-10.1); CREATININE 0.9 mg/dL (0.7-1.3); POTASSIUM 4.7 mmol/L (3.5-5.1)
[2017-10-07 05:53] LABS: TROPONIN-I 1.65 ng/mL (<0.06)
[2017-10-07 19:41] LABS: CALCIUM 7.6 mg/dL (8.5-10.1); MAGNESIUM 1.8 mg/dL (1.8-2.4); POTASSIUM 4.5 mmol/L (3.5-5.1)
[2017-10-08] VITALS (34 sets, daily range): BP systolic 74–148; BP diastolic 43–89
[2017-10-08 05:17] LABS: HEMOGLOBIN 11.8 gm/dL (14.0-18.0); MCH 31.9 pg (26.0-34.0); MCHC 34.9 g/dL (28.0-37.0); MCV 91.5 fL (80.0-100.0); RBC 3.72 mil/uL (4.50-6.00); RDW 13.4 % (10.5-14.5)
[2017-10-08 05:32] LABS: ALBUMIN 2.3 g/dL (3.4-5.0); CALCIUM 7.6 mg/dL (8.5-10.1); CREATININE 1.1 mg/dL (0.7-1.3); POTASSIUM 4.2 mmol/L (3.5-5.1); TOTAL BILIRUBIN 2.3 mg/dL (<0.1-1.0); TOTAL PROTEIN 4.9 g/dL (6.4-8.2)
[2017-10-08 05:55] LABS: PCO2 33.3 mmHg (35.0-45.0); pH 7.412 (7.360-7.450)
[2017-10-08 05:56] LABS: BE(vivo) -3.1 mmol/L (-2 to +3); HCO3 20.7 mmol/L (22.0-26.0); PO2 113.8 mmHg (80.0-100.0)
[2017-10-08 05:57] LABS: sO2 98.2 % (92.0-98.0)
[2017-10-09] VITALS (25 sets, daily range): BP systolic 87–149; BP diastolic 60–88
[2017-10-09 03:55] LABS: CALCIUM 7.8 mg/dL (8.5-10.1); CREATININE 1.1 mg/dL (0.7-1.3); POTASSIUM 3.7 mmol/L (3.5-5.1)
[2017-10-09 04:37] LABS: HEMATOCRIT 27.7 % (42.0-52.0); MCH 32.5 pg (26.0-34.0); MCHC 35.3 g/dL (28.0-37.0); MCV 92.2 fL (80.0-100.0); RBC 3.01 mil/uL (4.50-6.00); RDW 13.6 % (10.5-14.5); WBC 4.4 thou/uL (4.0-11.0)
[2017-10-09 04:43] LABS: HEMOGLOBIN 9.8 gm/dL (14.0-18.0)
[2017-10-09 05:37] LABS: HCO3 20.7 mmol/L (22.0-26.0); PCO2 32.5 mmHg (35.0-45.0); pH 7.422 (7.360-7.450); sO2 87.8 % (92.0-98.0)
[2017-10-09 05:38] LABS: PO2 51.7 mmHg (80.0-100.0)
[2017-10-09 14:51] LABS: APTT 28.2 Seconds (24.5-32.8); FIBRINOGEN 484.6 mg/dL (210-360); INR 1.1; PROTIME 11.2 Seconds (9.3-11.4)
[2017-10-09 17:09] LABS: URINE BILIRUBIN NEGATIVE (Negative); URINE BLOOD 1+ (Negative); URINE CLARITY CLEAR; URINE COLOR YELLOW; URINE GLUCOSE-RANDOM* NEGATIVE (Negative); URINE KETONES 1+ (Negative); URINE LEUKOCYTES NEGATIVE (Negative); URINE NITRITE NEGATIVE (Negative); URINE PROTEIN (DIPSTICK) TRACE (Negative); URINE SPECIFIC GRAVITY 1.025 (1.005-1.035); URINE UROBILINOGEN 0.2 E.U./dl (0.2-1.0)
[2017-10-09 17:24] LABS: SQUAMOUS None Seen /LPF (0-3)
[2017-10-09 17:25] LABS: BACTERIA 1-9 Few /HPF (None Seen); CASTS None Seen /LPF (None Seen); CRYSTALS None Seen /LPF (None Seen); URINE RBC 3-10 Few /HPF (0-2); URINE WBC None Seen /HPF (0-5)
[2017-10-10] VITALS (22 sets, daily range): BP systolic 106–175; BP diastolic 64–108
[2017-10-10 04:54] LABS: CALCIUM 8.2 mg/dL (8.5-10.1); CREATININE 0.9 mg/dL (0.7-1.3); POTASSIUM 3.9 mmol/L (3.5-5.1)
[2017-10-10 04:57] LABS: PROTIME 10.6 Seconds (9.3-11.4)
[2017-10-10 04:59] LABS: ALBUMIN 2.2 g/dL (3.4-5.0); DIRECT BILIRUBIN 0.4 mg/dL (<0.1-0.3); TOTAL BILIRUBIN 1.7 mg/dL (<0.1-1.0); TOTAL PROTEIN 5.2 g/dL (6.4-8.2)
[2017-10-10 05:02] LABS: ABSOLUTE NEUTROPHILS 3.7 thou/uL (1.4-8.2); BASOPHILS 0.2 % (0.0-2.0); EOSINOPHILS 1.5 % (0.0-3.0); HEMATOCRIT 27.4 % (42.0-52.0); HEMOGLOBIN 9.5 gm/dL (14.0-18.0); LYMPHOCYTES 15.1 % (24.0-44.0); MCH 32.2 pg (26.0-34.0); MCHC 34.5 g/dL (28.0-37.0); MCV 93.3 fL (80.0-100.0); MONOCYTES 6.7 % (1.0-8.0); PLATELET COUNT 73 thou/uL (150-400); POLYS 76.5 % (36.0-66.0); RBC 2.94 mil/uL (4.50-6.00); RDW 13.5 % (10.5-14.5); WBC 4.9 thou/uL (4.0-11.0)
[2017-10-10 05:13] LABS: BE(vivo) -2.8 mmol/L (-2 to +3); HCO3 21.6 mmol/L (22.0-26.0); PCO2 35.7 mmHg (35.0-45.0); PO2 117.1 mmHg (80.0-100.0); pH 7.399 (7.360-7.450); sO2 98.3 % (92.0-98.0)
[2017-10-11] VITALS (19 sets, daily range): BP systolic 137–210; BP diastolic 71–135
[2017-10-11 04:47] LABS: HEMATOCRIT 27.4 % (42.0-52.0); HEMOGLOBIN 9.8 gm/dL (14.0-18.0); MCH 32.9 pg (26.0-34.0); MCHC 35.7 % (28.0-37.0); MCV 92.1 fL (80.0-100.0); RBC 2.97 mil/uL (4.50-6.00); RDW 12.8 % (10.5-14.5); WBC 5.4 thou/uL (4.0-11.0)
[2017-10-11 04:55] LABS: CREATININE 0.8 mg/dL (0.7-1.3); POTASSIUM 3.5 mmol/L (3.5-5.1)
[2017-10-11 05:09] LABS: BE(vivo) -0.4 mmol/L (-2 to +3); HCO3 22.7 mmol/L (22.0-26.0); PCO2 32.1 mmHg (35.0-45.0); pH 7.468 (7.360-7.450); sO2 98.6 % (92.0-98.0)
[2017-10-11 09:59] LABS: BE(vivo) 0.9 mmol/L (-2 to +3); HCO3 24.8 mmol/L (22.0-26.0); PCO2 36.9 mmHg (35.0-45.0); PO2 141.7 mmHg (80.0-100.0); pH 7.445 (7.360-7.450); sO2 98.9 % (92.0-98.0)
[2017-10-12] VITALS (10 sets, daily range): BP systolic 140–166; BP diastolic 77–99
[2017-10-12 05:32] LABS: HEMATOCRIT 29.9 % (42.0-52.0); HEMOGLOBIN 10.6 gm/dL (14.0-18.0); MCH 32.1 pg (26.0-34.0); MCHC 35.3 g/dL (28.0-37.0); MCV 90.9 fL (80.0-100.0); RBC 3.29 mil/uL (4.50-6.00); RDW 12.9 % (10.5-14.5); WBC 6.4 thou/uL (4.0-11.0)
[2017-10-12 05:45] LABS: CREATININE 0.8 mg/dL (0.7-1.3); POTASSIUM 3.5 mmol/L (3.5-5.1)
[2017-10-12 05:49] LABS: ALBUMIN 2.1 g/dL (3.4-5.0); DIRECT BILIRUBIN 0.2 mg/dL (<0.1-0.3); TOTAL BILIRUBIN 1.6 mg/dL (<0.1-1.0); TOTAL PROTEIN 5.4 g/dL (6.4-8.2)
[2017-10-13 04:38] VITALS: BP 157/89
[2017-10-13 19:18] VITALS: BP 154/89
[2017-10-14 04:09] VITALS: BP 150/91
[2017-10-14 04:20] LABS: HEMATOCRIT 29.1 % (42.0-52.0); HEMOGLOBIN 10.3 gm/dL (14.0-18.0); MCH 32.2 pg (26.0-34.0); MCHC 35.5 g/dL (28.0-37.0); MCV 90.6 fL (80.0-100.0); RBC 3.21 mil/uL (4.50-6.00)
[2017-10-14 04:35] LABS: ALBUMIN 2.4 g/dL (3.4-5.0); DIRECT BILIRUBIN 0.3 mg/dL (<0.1-0.3); TOTAL BILIRUBIN 1.5 mg/dL (<0.1-1.0); TOTAL PROTEIN 5.4 g/dL (6.4-8.2)
[2017-10-14 08:00] VITALS: BP 172/86
[2017-10-14 10:42] LABS: CALCIUM 8.4 mg/dL (8.5-10.1); CREATININE 0.8 mg/dL (0.7-1.3); POTASSIUM 3.3 mmol/L (3.5-5.1)
[2017-10-14 16:00] VITALS: BP 154/81
[2017-10-14 21:11] VITALS: BP 152/63
[2017-10-15 05:24] VITALS: BP 152/81
[2017-10-15 08:23] VITALS: BP 150/76
[2017-10-15 09:12] LABS: CALCIUM 8.6 mg/dL (8.5-10.1); CREATININE 0.9 mg/dL (0.7-1.3); MAGNESIUM 1.9 mg/dL (1.8-2.4); POTASSIUM 3.4 mmol/L (3.5-5.1)
[2017-10-15 15:43] VITALS: BP 141/76
[2017-10-15 22:30] VITALS: BP 144/87
[2017-10-16 04:08] VITALS: BP 141/86
[2017-10-16 08:03] VITALS: BP 159/84
[2017-10-16 11:16] VITALS: BP 159/84
[2017-10-16] MEDS ORDERED: TOPROL XL100 MG PO (15:07)
[2017-10-16] MEDS ORDERED: ATORVASTATIN CA40 MG PO (15:07)
[2017-10-16] MEDS ORDERED: COZAAR 50 MG TA50 M2 PO (15:07)
[2017-10-16] MEDS ORDERED: BRILINTA90 MG PO (15:07)
[2017-10-16] MEDS ORDERED: MIRALAX17 GM PO (15:07)
[2017-10-16] MEDS ORDERED: LEVALBUTER0.63 MG/3 INH (15:07)
[2017-10-16] MEDS ORDERED: ACETAMINOP160 MG/5 M PO (15:07)
[2017-10-16] MEDS ORDERED: MAG6464 MG PO (15:07)
[2017-10-16] MEDS ORDERED: PROTONIX 20 MG20 M1 PO (15:07)
[2017-10-16] MEDS ORDERED: PACERONE 200 M200 M1 PO ×2 (15:07)
[2017-10-16] MEDS ORDERED: ASPIR 8181 MG PO (15:07)
[2017-10-16] MEDS ORDERED: COLACE100 MG PO (15:07)
[2017-10-17 08:07] LABS: GLYCOHEMOGLOBIN (HGB A1C) 4.7 % (4.8-5.6)
== END 2017-10-16 16:09 | DRG 246 ==
LOC: ER 03:54 → EROBS 05:51 → ICU 05:51 → TBACV 05:52 → ICU 07:37 → 2N 10-12 16:05
PROVIDERS: Emergency Medicine; Hospitalist; Internal Medicine; Internal Medicine Gastroenterology; Internal Medicine Hematology & Oncology; Internal Medicine Pulmonary Disease; Nurse Practitioner; Nurse Practitioner Acute Care; Specialist
DX: I21.19 ST elevation (STEMI) myocardial infarction involving other coronary artery of inferior wall (principal); J69.0 Pneumonitis due to inhalation of food and vomit; J96.02 Acute respiratory failure with hypercapnia; J96.01 Acute respiratory failure with hypoxia; I49.01 Ventricular fibrillation; E87.2 Acidosis; G93.1 Anoxic brain damage, not elsewhere classified; N17.9 Acute kidney failure, unspecified; K92.2 Gastrointestinal hemorrhage, unspecified; I25.10 Atherosclerotic heart disease of native coronary artery without angina pectoris; I95.9 Hypotension, unspecified; E78.5 Hyperlipidemia, unspecified; D64.9 Anemia, unspecified; T68.XXXA Hypothermia, initial encounter; D69.6 Thrombocytopenia, unspecified; K75.9 Inflammatory liver disease, unspecified; R13.10 Dysphagia, unspecified; I48.0 Paroxysmal atrial fibrillation; I25.5 Ischemic cardiomyopathy; S09.90XA Unspecified injury of head, initial encounter; W18.39XA Other fall on same level, initial encounter; Y93.89 Activity, other specified; Y92.89 Other specified places as the place of occurrence of the external cause; Y99.8 Other external cause status; Z95.5 Presence of coronary angioplasty implant and graft; Z79.899 Other long term (current) drug therapy; Z79.82 Long term (current) use of aspirin
CPT/HCPCS: 10078; 10081; 27000

== ENCOUNTER → 2020-02-29 | Outpatient (CLI) | payer OTHER, MEDICARE ==
[~2020-02-29] MED LIST: ACETAMINOP160 MG/5 M PO; ASPIR 8181 MG PO; ATORVASTATIN CA40 MG PO; BRILINTA90 MG PO; COLACE100 MG PO; COZAAR 50 MG TA50 M2 PO; LEVALBUTER0.63 MG/3 INH; MAG6464 MG PO; MIRALAX17 GM PO; PACERONE 200 M200 M1 PO; PROTONIX 20 MG20 M1 PO; TOPROL XL100 MG PO
== END ==
LOC: SJCVC 13:37
DX: I48.0 Paroxysmal atrial fibrillation (principal); R94.31 Abnormal electrocardiogram [ECG] [EKG]; I25.10 Atherosclerotic heart disease of native coronary artery without angina pectoris; I10 Essential (primary) hypertension; E78.5 Hyperlipidemia, unspecified; I65.23 Occlusion and stenosis of bilateral carotid arteries; I25.2 Old myocardial infarction; Z79.899 Other long term (current) drug therapy; Z86.74 Personal history of sudden cardiac arrest

== ENCOUNTER → 2020-08-04 | Outpatient (CLI) | payer OTHER, MEDICARE | LOC: SJCVCIMAG 07:22 | PROVIDERS: ATTEND Internal Medicine | DX: I08.3 Combined rheumatic disorders of mitral, aortic and tricuspid valves (principal); I25.10 Atherosclerotic heart disease of native coronary artery without angina pectoris; I25.2 Old myocardial infarction; I10 Essential (primary) hypertension; I48.0 Paroxysmal atrial fibrillation; Z98.61 Coronary angioplasty status; Z79.899 Other long term (current) drug therapy ==

== ENCOUNTER → 2020-08-08 | Outpatient (CLI) | payer OTHER, MEDICARE | LOC: SJCVCIMAG 11:24 | PROVIDERS: ATTEND Internal Medicine | DX: I65.23 Occlusion and stenosis of bilateral carotid arteries (principal); Z79.899 Other long term (current) drug therapy ==

== ENCOUNTER → 2020-08-16 | Outpatient (CLI) | payer OTHER, MEDICARE | LOC: SJCVCIMAG 11:26 | PROVIDERS: ATTEND Internal Medicine | DX: E04.1 Nontoxic single thyroid nodule (principal); Z79.899 Other long term (current) drug therapy ==

== ENCOUNTER → 2021-02-07 | Outpatient (CLI) | payer OTHER, MEDICARE | LOC: SJCVC 11:42 | PROVIDERS: ATTEND Internal Medicine | DX: R94.31 Abnormal electrocardiogram [ECG] [EKG] (principal); I48.11 Longstanding persistent atrial fibrillation; I25.10 Atherosclerotic heart disease of native coronary artery without angina pectoris; I10 Essential (primary) hypertension; E78.5 Hyperlipidemia, unspecified; I65.23 Occlusion and stenosis of bilateral carotid arteries; Z86.74 Personal history of sudden cardiac arrest; I25.2 Old myocardial infarction; Z79.899 Other long term (current) drug therapy; Z72.89 Other problems related to lifestyle; Z88.5 Allergy status to narcotic agent ==

== ENCOUNTER → 2021-11-15 | Outpatient (CLI) | payer OTHER, MEDICARE | LOC: SJCVC 10:20 | PROVIDERS: ATTEND Internal Medicine | DX: I25.10 Atherosclerotic heart disease of native coronary artery without angina pectoris (principal); I48.21 Permanent atrial fibrillation; I10 Essential (primary) hypertension; I65.23 Occlusion and stenosis of bilateral carotid arteries; E78.5 Hyperlipidemia, unspecified; Z86.74 Personal history of sudden cardiac arrest; I48.0 Paroxysmal atrial fibrillation; I49.01 Ventricular fibrillation; Z79.899 Other long term (current) drug therapy; Z72.89 Other problems related to lifestyle; Z88.8 Allergy status to other drugs, medicaments and biological substances ==

== ENCOUNTER → 2021-11-23 | Outpatient (CLI) | payer OTHER, MEDICARE | LOC: SJCVCIMAG 13:20 | PROVIDERS: ATTEND Internal Medicine | DX: I65.23 Occlusion and stenosis of bilateral carotid arteries (principal); I10 Essential (primary) hypertension ==